=== PATIENT | female | born 1995 | race Caucasian/White ===

== ENCOUNTER 2016-12-06 06:32 | Observation (INO) | payer OTHER ==
[~2016-12-06] VITALS: Ht 162.6 cm; Wt 81.6 kg
--- NOTE | 2016-12-06 06:47 | NUR ---
PT TO ED C/O CENTER CHEST PAIN THAT HAS BEEN CONSTANT FOR APPROX 2 HRS. WAS RADIATING TO BOTH SHOULDERS, DENIES AT THIS TIME. PAIN WORSE WITH DEEP INSPIRATION. WORSE WHEN LYING FLAT. DENIES N/V. C/O DIZZINESS. C/O SOB, EVEN AT REST. DENIES LONG TRIPS, BUT DID TAKE A 90 MIN TRAIN RIDE YESTERDAY
--- NOTE | 2016-12-06 07:15 | ED CARDIAC/CP/PALPITATIONS ---
History of Present Illness General Chief Complaint: Chest Pain Stated Complaint: "WOKE UP WITH CHEST PAIN & DIFF BREATHING" PER PT Source: patient Exam Limitations: no limitations Vital Signs & Intake/Output Vital Signs & Intake/Output Vital Signs Date Time Temp Pulse Resp B/P Pulse O2 O2 Flow FiO2 Ox Delivery Rate 12/06 1204 97.9 98 20 132/84 96 Room Air 12/06 1011 98.0 110 22 127/69 98 Room Air 12/06 1006 108 / 0944 99.0 12/06 0848 99.0 12/06 0837 99.0 110 20 134/71 98 Room Air 12/06 0758 99.0 116 20 134/89 98 Room Air 12/06 0652 99 Room Air 12/06 0645 99.4 121 18 142/91 97 Room Air Allergies Coded Allergies: No Known Drug Allergies (12/06/16) Reconcile Medications Adalimumab (Humira Pen) 40 MG/0.8 ML PEN.IJ.KIT 1 SYR SC QW CROHNS DX ( Reported) Albuterol Sulfate (Proventil Hfa) 90 MCG HFA.AER.AD 2 PUF INH 4 TIMES/DAY ASTHMA (Reported) Dihydroergotamine Mesylate 0.5 MG/PUMP ACTUATION (4 MG/ML) SPRAY.PUMP 1 SPRAY ALEX AD MIGRAINE (Reported) INHALE 0.5 MG ONCE THROUGH NOSE AT FIRST SIGN OF MIGRAINE ATTACK. CAN REPEAT DOSE IN 15 MINUTES. DO NOT EXCEED 3 MG PER DAY OR 6 MG PER WEEK Diphenoxylate HCl/Atropine (Lomotil 2.5-0.025 MG Tablet) 2.5 MG-0.025 MG TABLET 1 TAB PO TID PRN DIARRHEA (Reported) NOT GIVEN IN HOSPITAL Indomethacin 25 MG CAPSULE 3 TAB PO BID PERICARDITIS Lamotrigine (Lamotrigine ER) 50 MG TAB.ER.24 1 TAB PO BID SEIZURE PROPHYLAXIS (Reported) Levonorgestrel-Ethin Estradiol (Aviane-28 Tablet) 0.1 MG-20 MCG TABLET 1 TAB PO DAILY BC (Reported) Mesalamine (Delzicol) 400 MG CAPSULE.DR 4 TAB PO DAILY CROHNS DX (Reported) Omeprazole 20 MG CAPSULE.DR 1 CAP PO AT BEDTIME GERD (Reported) Ondansetron (Zofran Odt) 4 MG TAB.RAPDIS 1 TAB SL TID PRN NAUSEA/VOMITING ( Reported) Venlafaxine HCl (Venlafaxine HCl ER) 37.5 MG CAP.ER.24H 4 CAP PO DAILY MIGRAINE PROPHYLAXIS (Reported) Triage Note: PT TO ED C/O CENTER CHEST PAIN THAT HAS BEEN CONSTANT FOR APPROX 2 HRS. WAS RADIATING TO BOTH SHOULDERS, DENIES AT THIS TIME. PAIN WORSE WITH DEEP INSPIRATION. WORSE WHEN LYING FLAT. DENIES N/V. C/O DIZZINESS. C/O SOB, EVEN AT REST. DENIES LONG TRIPS, BUT DID TAKE A 90 MIN TRAIN RIDE YESTERDAY Triage Nurses Notes Reviewed? yes Onset: Abrupt Duration: minute(s): (2) Timing: single episode today Quality/Severity: moderate, pressure Location: central Radiation: shoulders Activities at Onset: sleep Associated Symptoms: palpiatations : No Patient currently breastfeeds: No HPI: This is a 21 year old female who presents to the ER for chief complaint of chest pain and shortness of breath which woke her up from sleep at 5 am today. Complains of pressure like pain, initially radiating to bilateral shoulders. Positive palpitations. No fever or chills, no recent URI symptoms. Patient is on control pills. Denies any recent prolonged travel or immobilization. She denies chance of . Also history of Crohn's disease on weekly Humira injections. Past History Travel History Traveled to [place] past 21 day No Medical History Any Pertinent Medical History? see below for history Neurological: migraine, seizure Respiratory: asthma Gastrointestinal: Crohn's disease Surgical History Surgical History: COLONOSCOPIES Psychosocial History What is your primary language Bolivian Tobacco Use: Never used ETOH Use: occasional use Illicit Drug Use: denies illicit drug use Family History Hx Contributory? No Review of Systems Review of Systems Constitutional: Denies: chills, fever. EENTM: Reports: no symptoms. Respiratory: Reports: short of breath. Denies: cough, sputum production. Cardiovascular: Reports: chest pain, palpitations. GI: Denies: abdominal pain. Genitourinary: Reports: no symptoms. Musculoskeletal: Reports: no symptoms. Skin: Reports: no symptoms. Neurological/Psychological: Reports: no symptoms. Hematologic/Endocrine: Denies: bruising, bleeding, polyuria, polydipsia. Immunologic/Allergic: Denies: splenectomy. All Other Systems: Reviewed and Negative Physical Exam Physical Exam General Appearance: well developed/nourished, alert, awake, anxious Head: atraumatic, normal appearance Eyes: Bilateral: normal appearance, PERRL, EOMI. Ears, Nose, Throat: normal pharynx, normal ENT inspection Neck: normal inspection, supple, full range of motion Respiratory: normal breath sounds, chest non-tender, no respiratory distress Cardiovascular: regular rate/rhythm Peripheral Pulses: 2+ radial (R), 2+ radial (L) Gastrointestinal: normal bowel sounds, soft, non-tender Back: normal inspection Extremities: normal inspection, normal capillary refill, normal range of motion, no edema Neurologic/Psych: no motor/sensory deficits, awake, alert, oriented x 3, normal gait, normal mood/affect Skin: intact, normal color, warm/dry Core Measures ACS in differential dx? Yes Severe Sepsis Present: No Septic Shock Present: No Progress Differential Diagnosis: AMI, aortic dissection, costochondritis, musculoskeletal pain, myocarditis, pericarditis, pneumonia, pneumothorax, PSVT, pulmonary embolism, PVCs/PACs, unstable angina, PERICARDITIS Plan of Care: Orders Procedure Date/time Status Regular Diet 12/06 L Active Patient Data 12/[address] in observation 12/06 1059 Active Vital Signs 12/06 1059 Active Code Status 12/06 1059 Active URINALYSIS 12/06 1028 Complete Add-on Test (ER Only) 12/06 0825 Active CREATINE PHOSPHOKINASE 12/06 0729 Complete THYROID STIMULATING HORMONE 12/06 0719 Complete TROPONIN LEVEL 12/06 0719 Complete PARTIAL THROMBOPLASTIN TIME 12/06 0719 Complete PROTHROMBIN TIME 12/06 0719 Complete HUMAN BETA HCG SCREEN 12/06 0719 Complete FREE T4 12/06 0719 Complete WESTERGREN SED RATE 12/06 0719 Complete D-DIMER 12/06 0719 Complete COMPREHENSIVE METABOLIC PANEL 12/06 0719 Complete CBC WITHOUT DIFFERENTIAL 12/06 0719 Complete Intake & Output 12/06 0649 Active EKG 12/06 0634 Active Laboratory Tests 12/06/16 1029: Urine Color YEL, Urine Clarity CLEAR, Urine pH 6.0, Ur Specific Alvo 1.010, Urine Protein NEG, Urine Ketones NEG, Urine Nitrite NEG, Urine Bilirubin NEG, Urine Urobilinogen 0.2, Ur Leukocyte Esterase NEG, Ur Microscopic SEDIMENT EXAMINED, Urine RBC RARE, Urine WBC 1-3 H, Ur Epithelial Cells MOD H, Urine Hemoglobin TRACE-INTACT, Urine Glucose NEG 12/06/16 0729: Anion Gap 9, Estimated GFR > 60, BUN/Creatinine Ratio 14.3, Glucose 96, Calcium 8.5, Total Bilirubin 0.5, AST 33, ALT 52, Alkaline Phosphatase 103, Creatine Kinase 237 H, Troponin I < 0.01, Total Protein 7.1, Albumin 3.6, Globulin 3.5, Albumin/Globulin Ratio 1.0 L, TSH 0.923, Free T4 0.82, Total Beta HCG NEGATIVE, PT 13.1 H, INR 1.25 H, APTT 27, D-Dimer 3544 H, CBC w Diff NO MAN DIFF REQ, RBC 4.83, MCV 76.9 L, MCH 25.3 L, RDW 14.4, MPV 7.6, Gran % 61.0, Lymphocytes % 20.9, Monocytes % 15.5 H, Eosinophils % 2.3, Basophils % 0.3, Absolute Granulocytes 4.6, Absolute Lymphocytes 1.6, Absolute Monocytes 1.2 H, Absolute Eosinophils 0.2, Absolute Basophils 0, PUBS MCHC 32.9 L, ESR Westergren 17 8:33 AM Patient still complaining of some pain after Toradol although she is feeling "better. Requesting more pain medications. IV Tylenol ordered. D-dimer is pending. Troponin is negative. Heart rate is 107. HR 140'S and becomes diaphoretic with ambulation. D/W Dr. Villalpando, will keep overnight on telemetry. (NINA ATKINSON,CARMEN) Diagnostic Imaging: Viewed by Me: CT Scan, Ultrasound. Discussed w/RAD: CT Scan, Ultrasound. Radiology Impression: PATIENT: ROSEMARIE CHACON PRESENT AGE: 21 PATIENT ACCOUNT NO: [id number] : 94 LOCATION: [facility] ORDERING PHYSICIAN: CARMEN WOOD MD SERVICE DATE: 12/06/16 EXAM TYPE: CAT - CTA CHEST-PULMONARY EMBOLISM EXAMINATION: CT ANGIOGRAM OF THE CHEST WITH AND WITHOUT CONTRAST (CT PULMONARY ANGIOGRAM FOR PE) CLINICAL INFORMATION: Chest pain and tachycardia; question pulmonary embolus. COMPARISON: No pertinent prior studies are available for comparison. TECHNIQUE: Prior to contrast administration, noncontrast localization images were obtained. Subsequently, multidetector volumetric imaging was performed from the thoracic inlet to below the diaphragms following the administration of 95 mL Optiray 320 intravenous contrast. No contrast reaction reported Sagittal, coronal, and MIP oblique sagittal reformatted images were obtained on the CT workstation, uploaded to PACS, and reviewed. Total exam dose-length product 424.59 mGy-cm FINDINGS: QUALITY OF STUDY/CONTRAST BOLUS: Satisfactory. PULMONARY ARTERIES: No central or segmental pulmonary emboli. THORACIC AORTA: No aneurysm or dissection. LUNG: Anteriorly within the right middle lobe (2:172), there is a 3 mm noncalcified subpleural nodule. There is a 5 mm pleural-based nodule, likely a subpleural lymph node, in the posteromedial right lower lobe (2:183). In the posterior basal segment of the left lower lobe (2:345), there is a 5 mm peripheral parenchymal, noncalcified nodule. 3 mm and 2 mm subpleural nodules are seen in the lateral basal segment of the left lower lobe (2:333 and 344). There is no focal infiltrate or groundglass opacity. There is mild left apical scarring. No generalized increase is seen in peripheral interlobular septal markings. No bleb or bullous formation is seen. The central airways appear patent. PLEURA: No pleural effusion or pneumothorax. MEDIASTINUM: Normal heart size. No pericardial effusion. No hilar or mediastinal lymphadenopathy. No evidence of septal bowing or right heart strain. CHEST WALL/AXILLA: No axillary or internal mammary lymphadenopathy. OSSEOUS STRUCTURES: No acute or suspicious osseous abnormality. UPPER ABDOMEN: Unremarkable. No reflux of contrast into the hepatic veins to suggest elevated right heart pressures. IMPRESSION: 1. No pulmonary embolus is seen. There is no thoracic aortic aneurysm or dissection. 2. There are small bilateral pulmonary nodules, the largest measuring approximately 5 mm. These are nonspecific could be secondary to infectious, inflammatory or neoplastic etiologies. Recommend continued follow-up via Fleischner criteria. 3. The lungs appear clear. 4. No sizable mediastinal or hilar adenopathy is seen. REFERENCE: Various management parameters for pulmonary nodules are in the literature. According to the Fleischner Society, recommendations for pulmonary nodules are as follows: Nodule size < or = to 4 mm in LOW RISK PATIENTS: No follow up needed. Nodule size < or = to 4 mm in HIGH RISK PATIENTS: Follow up CT at 12 months; if unchanged, no further follow up. Nodule size > 4-6 mm in LOW RISK PATIENTS: Follow up CT at 12 months; if unchanged, no further follow up. Nodule size > 4-6 mm in HIGH RISK PATIENTS: Initial follow up CT at 6-12 months, then at 18-24 months if no change. Nodule size > 6-8 mm in LOW RISK PATIENTS: Initial follow up CT at 6-12 months, then at 18-24 months if no change. Nodule size > 6-8 mm in HIGH RISK PATIENTS: Initial follow up CT at 3-6 months, then 9-12 months and 24 months if no change. Nodule size > 8 mm in LOW RISK PATIENTS: Follow up CT at around 3, 9, and 24 months, dynamic contrast-enhanced CT, PET, and/or biopsy. Nodule size > 8 mm in HIGH RISK PATIENTS: Same as for low-risk patients. DICTATED BY: AUGUSTINE FIELD MD DATE /TIME DICTATED:12/06/16955 DRAFTER SEISMOGRAPH:MAX DATE/TIME TRANSCRIBED: 12/06/16955 CONFIDENTIAL, DO NOT COPY WITHOUT APPROPRIATE AUTHORIZATION. < Electronically signed in Other Vendor System> SIGNED BY: AUGUSTINE FIELD MD 12/06/16 1012, PATIENT: ROSEMARIE CHACON PRESENT AGE: 21 PATIENT ACCOUNT NO: [id number] : 94 LOCATION: [facility] ORDERING PHYSICIAN: CARMEN WOOD MD SERVICE DATE: 12/06/16 EXAM TYPE: US - US-EXT BILAT VENOUS DOPPLER EXAMINATION: US TRIPLEX LOWER EXTREMITY, BILATERAL CLINICAL INFORMATION: Dyspnea and tachycardia. On oral contraceptives. Suspect venous thromboembolism. Swelling both lower extremities. COMPARISON: None TECHNIQUE: Color-flow triplex imaging with spectral analysis and compression Doppler were performed on the bilateral lower extremities. FINDINGS: Respiratory variation, normal compression and augmented flow are noted throughout the bilateral lower extremities. The visualized common femoral vein, superficial femoral vein, profunda femoral vein, popliteal vein and midcalf peroneal and posterior tibial venous segments show no evidence of deep venous thrombosis. There is no Diaz's cyst. IMPRESSION: Normal triplex scan without evidence of deep venous thrombosis involving the bilateral lower extremities. DICTATED BY: SYL BLOOD MD DATE /TIME DICTATED:12/06/161204 DRAFTER SEISMOGRAPH:MAX DATE/TIME TRANSCRIBED: 12/06/161204 CONFIDENTIAL, DO NOT COPY WITHOUT APPROPRIATE AUTHORIZATION. < Electronically signed in Other Vendor System> SIGNED BY: SYL BLOOD MD 12/06/16 1211 Initial ED EKG: SINUS TACHYCARDIA @ 114 BPM Rhythm Strip: sinus tachycardia Departure Departure Time of Disposition: 1100 Disposition: STILL A PATIENT Condition: Stable Clinical Impression Primary Impression: Sinus tachycardia Referrals: VIKTOR CHONG D.O. (PCP/Family) Departure Forms: Customer Survey General Discharge Information Prescriptions: Current Visit Scripts Indomethacin 3 TAB PO BID #60 Observation Note Spoke With: KWASI ATKINSON PhD,DYLAN Ting Physician Advisor Notified: CHERI GOLDSMITH DO Place Patient In: Non-ED OBS Care Area Rationale for Observation: My rational for observation is as follows [TELE MONITOR, NASAL O2, IV FLUIDS, SERIAL EKG, SERIAL TROPONIN, CARDIOLOGY EVALUATION BY DR VILLALPANDO, CONSIDER ECHOCARDIOGRAM, F/U DOPPLER U/S]. Critical Care Note Critical Care Note Critical Care Time: non-applicable
--- NOTE | 2016-12-06 07:16 | NUR ---
TRIAGE NOTE APPRECIATED 02 SAT 97% RA LUNGS CTA NO SWELLING NOTED TO BILAT LOWER EXT.
[2016-12-06 08:01] LABS: ABSOLUTE BASOPHIL COUNT 0 /CUMM (0.0-0.2); ABSOLUTE EOSINOPHIL COUNT 0.2 /CUMM (0.0-0.7); ABSOLUTE GRANULOCYTE CT 4.6 /CUMM (1.4-6.5); ABSOLUTE LYMPH COUNT 1.6 /CUMM (1.2-3.4); ABSOLUTE MONOCYTE COUNT 1.2 /CUMM (0.10-0.60); BASOPHIL % 0.3 % (0.0-2.0); EOSINOPHIL % 2.3 % (0-5); HEMATOCRIT 37.2 % (37-47); MEAN CORPUSCULAR HGB 25.3 PG (27.0-31.0); MEAN CORPUSCULAR HGB CONC 32.9 G/DL (33.0-37.0); MEAN CORPUSCULAR VOLUME 76.9 FL (81.0-99.0); MEAN PLATELET VOLUME 7.6 FL (7.4-10.4); PLATELET COUNT 212 /CUMM (130-400); RBC DISTRIBUTION WIDTH 14.4 % (11.5-14.5); RED BLOOD CELL CT 4.83 /CUMM (4.20-5.40); WHITE BLOOD CELL COUNT 7.5 /CUMM (4.8-10.8)
--- NOTE | 2016-12-06 08:48 | NUR ---
PAIN CONT. BY GIVEN IV APAP
[2016-12-06 09:11] LABS: PT 13.1 SEC (9.4-12.5); PTT 27 SEC (25-37)
[2016-12-06] MEDS ORDERED: AVIANE-28 TABL1 EACH PO (09:18)
[2016-12-06] MEDS ORDERED: VENLAFAXINE H37.5 M4 PO (09:19)
[2016-12-06] MEDS ORDERED: LOMOTIL 2.5-0.1 EACH PO (09:19)
[2016-12-06] MEDS ORDERED: SUMATRIPTA6 MG/0.52 SC (09:20)
[2016-12-06] MEDS ORDERED: DELZICOL400 M1 PO (09:20)
[2016-12-06] MEDS ORDERED: ZOFRAN ODT4 M1 SL (09:20)
[2016-12-06] MEDS ORDERED: DIHYDROERGOTAMIN1 ML NAS (09:20)
[2016-12-06] MEDS ORDERED: HUMIRA PEN40 MG/0.8 SC (09:21)
--- NOTE | 2016-12-06 09:43 | NUR ---
PT ACCOMPANIED BY THIS NURSE TO CT SCAN
--- NOTE | 2016-12-06 10:12 | CT SCAN REPORT ---
EXAMINATION: CT ANGIOGRAM OF THE CHEST WITH AND WITHOUT CONTRAST (CT PULMONARY ANGIOGRAM FOR PE) CLINICAL INFORMATION: Chest pain and tachycardia; question pulmonary embolus. COMPARISON: No pertinent prior studies are available for comparison. TECHNIQUE: Prior to contrast administration, noncontrast localization images were obtained. Subsequently, multidetector volumetric imaging was performed from the thoracic inlet to below the diaphragms following the administration of 95 mL Optiray 320 intravenous contrast. No contrast reaction reported Sagittal, coronal, and MIP oblique sagittal reformatted images were obtained on the CT workstation, uploaded to PACS, and reviewed. Total exam dose-length product 424.59 mGy-cm FINDINGS: QUALITY OF STUDY/CONTRAST BOLUS: Satisfactory. PULMONARY ARTERIES: No central or segmental pulmonary emboli. THORACIC AORTA: No aneurysm or dissection. LUNG: Anteriorly within the right middle lobe (2:172), there is a 3 mm noncalcified subpleural nodule. There is a 5 mm pleural-based nodule, likely a subpleural lymph node, in the posteromedial right lower lobe (2:183). In the posterior basal segment of the left lower lobe (2:345), there is a 5 mm peripheral parenchymal, noncalcified nodule. 3 mm and 2 mm subpleural nodules are seen in the lateral basal segment of the left lower lobe (2:333 and 344). There is no focal infiltrate or groundglass opacity. There is mild left apical scarring. No generalized increase is seen in peripheral interlobular septal markings. No bleb or bullous formation is seen. The central airways appear patent. PLEURA: No pleural effusion or pneumothorax. MEDIASTINUM: Normal heart size. No pericardial effusion. No hilar or mediastinal lymphadenopathy. No evidence of septal bowing or right heart strain. CHEST WALL/AXILLA: No axillary or internal mammary lymphadenopathy. OSSEOUS STRUCTURES: No acute or suspicious osseous abnormality. UPPER ABDOMEN: Unremarkable. No reflux of contrast into the hepatic veins to suggest elevated right heart pressures. IMPRESSION: 1. No pulmonary embolus is seen. There is no thoracic aortic aneurysm or dissection. 2. There are small bilateral pulmonary nodules, the largest measuring approximately 5 mm. These are nonspecific could be secondary to infectious, inflammatory or neoplastic etiologies. Recommend continued follow-up via Fleischner criteria. 3. The lungs appear clear. 4. No sizable mediastinal or hilar adenopathy is seen. REFERENCE: Various management parameters for pulmonary nodules are in the literature. According to the Fleischner Society, recommendations for pulmonary nodules are as follows: Nodule size < or = to 4 mm in LOW RISK PATIENTS: No follow up needed. Nodule size < or = to 4 mm in HIGH RISK PATIENTS: Follow up CT at 12 months; if unchanged, no further follow up. Nodule size > 4-6 mm in LOW RISK PATIENTS: Follow up CT at 12 months; if unchanged, no further follow up. Nodule size > 4-6 mm in HIGH RISK PATIENTS: Initial follow up CT at 6-12 months, then at 18-24 months if no change. Nodule size > 6-8 mm in LOW RISK PATIENTS: Initial follow up CT at 6-12 months, then at 18-24 months if no change. Nodule size > 6-8 mm in HIGH RISK PATIENTS: Initial follow up CT at 3-6 months, then 9-12 months and 24 months if no change. Nodule size > 8 mm in LOW RISK PATIENTS: Follow up CT at around 3, 9, and 24 months, dynamic contrast-enhanced CT, PET, and/or biopsy. Nodule size > 8 mm in HIGH RISK PATIENTS: Same as for low-risk patients.
--- NOTE | 2016-12-06 10:30 | NUR ---
URINE SPEC. SENT TO LAB PT AMBULATED IN [place] SAT RANGED BETWEEN 96 AND 97 ON RA PT FELT DIZZY AND BECAME DIAPHORETIC HR [address] DR. WOOD MADE AWARE
--- NOTE | 2016-12-06 11:10 | NUR ---
PT AWARE SHE WILL BE ADMITED
--- NOTE | 2016-12-06 11:34 | NUR ---
PT TO US VIA STRETCHER RESTING COMFORTABLE AT THIS TIME
--- NOTE | 2016-12-06 12:03 | History & Physical ---
See Addendum General Information and HPI MD Statement: I have seen and personally examined ROSEMARIE CHACON and documented this H&P. The patient is a 21 year old F who presented with a patient stated chief complaint of [chest pain]. Source of Information: patient Exam Limitations: no limitations History of Present Illness: Ms Benjamin is a 21 year old woman with a past medical history of migraines, crohn 's disease, epilepsy and asthma. She presents with a sudden onset of pleuritic chest pain that woke her up from sleep this morning around 5 am. The pain is 8/ 10 intensity, constant and worsened by deep breaths and partially relieved by leaning forward. it radiated to both her shoulders and arms and is associated with palpitations and shortness of breath. She felt light-headed at the onset of her chest pain, but denied orthopnea or diaphoresis. This is the first such episiode of such pain she has ever experienced. When she could not get any relief from her albuterol inhaler, she called EMS and was brought to the hospital. She denies prior malaise, URTI, fever, or chills. She does not have nausea, vomitting or change in her usual bowel movements (She has crohn's disease). She was assessed in the ER and was found to be tachycardic to 120 bpm. She had a markedly elevated D-Dimer of 3544. However a CT scan of her chest and doppler ultrasound of her legs were all negative for thromboembolism. Allergies/Medications Allergies: Coded Allergies: No Known Drug Allergies (12/06/16) Home Med list Adalimumab (Humira Pen) 40 MG/0.8 ML PEN.IJ.KIT 1 SYR SC QW CROHNS DX ( Reported) Albuterol Sulfate (Proventil Hfa) 90 MCG HFA.AER.AD 2 PUF INH 4 TIMES/DAY ASTHMA (Reported) Dihydroergotamine Mesylate 0.5 MG/PUMP ACTUATION (4 MG/ML) SPRAY.PUMP 1 SPRAY ALEX AD MIGRAINE (Reported) INHALE 0.5 MG ONCE THROUGH NOSE AT FIRST SIGN OF MIGRAINE ATTACK. CAN REPEAT DOSE IN 15 MINUTES. DO NOT EXCEED 3 MG PER DAY OR 6 MG PER WEEK Diphenoxylate HCl/Atropine (Lomotil 2.5-0.025 MG Tablet) 2.5 MG-0.025 MG TABLET 1 TAB PO TID PRN DIARRHEA (Reported) Lamotrigine (Lamotrigine ER) 50 MG TAB.ER.24 1 TAB PO BID SEIZURE PROPHYLAXIS (Reported) Levonorgestrel-Ethin Estradiol (Aviane-28 Tablet) 0.1 MG-20 MCG TABLET 1 TAB PO DAILY BC (Reported) Mesalamine (Delzicol) 400 MG CAPSULE.DR 4 TAB PO DAILY CROHNS DX (Reported) Omeprazole 20 MG CAPSULE.DR 1 CAP PO AT BEDTIME GERD (Reported) Ondansetron (Zofran Odt) 4 MG TAB.RAPDIS 1 TAB SL TID PRN NAUSEA/VOMITING ( Reported) Sumatriptan Succinate 6 MG/0.5 ML PEN.INJCTR 6 MG SC AD PRN MIGRAINE HEADACHE (Reported) INJECT 6 MG AT FIRST SIGN OF HEADACHE. CAN REPEAT DOSE AFTER 1 HOUR IF NO RESPONSE. DO NOT EXCEED 12 MG IN 24 HOURS Venlafaxine HCl (Venlafaxine HCl ER) 37.5 MG CAP.ER.24H 4 CAP PO DAILY MIGRAINE PROPHYLAXIS (Reported) Past History Travel History Traveled to [place] past 21 day No Medical History Neurological: migraine, seizure Respiratory: asthma Gastrointestinal: Crohn's disease Surgical History Surgical History: COLONOSCOPIES Past Family/Social History Family History Relations & Conditions if any FATHER FH: atrial fibrillation FH: diabetes mellitus FH: HTN (hypertension) MOTHER FH: HTN (hypertension) Psychosocial History Where do you live? Home Who Do You Live With? spouse Smoking Status: Never Smoked ETOH Use: occasional use Illicit Drug Use: denies illicit drug use Employment History Employment Law Student Review of Systems Review of Systems Constitutional: Reports: see HPI. Denies: chills, diaphoresis, fever, malaise. Exam & Diagnostic Data Last 24 Hrs of Vital Signs/I&O Vital Signs Date Time Temp Pulse Resp B/P Pulse O2 O2 Flow FiO2 Ox Delivery Rate 12/06 2036 Room Air 12/06 1623 98.7 103 16 145/74 96 Room Air 12/06 1352 98.8 98 20 130/100 97 Room Air Room Air 12/06 1306 97.8 110 20 138/89 12/06 1204 97.9 98 20 132/84 96 Room Air 12/06 1011 98.0 110 22 127/69 98 Room Air 12/06 1006 108 12/06 0944 99.0 12/06 0848 99.0 02/04 0837 99.0 110 20 134/71 98 Room Air 12/06 0758 99.0 116 20 134/89 98 Room Air 12/06 0652 99 Room Air 12/06 0645 99.4 121 18 142/91 97 Room Air Intake & Output 12/06 1600 12/06 0800 12/06 0000 Intake Total 2340 0 Output Total Balance 2340 0 Intake, IV 2100 Intake, Oral 240 0 Patient 180 lb 180 lb Weight Physical Exam General Appearance Alert, Oriented X3, Cooperative, No Acute Distress Skin No Rashes, No Breakdown, No Significant Lesion HEENT Atraumatic, PERRLA, EOMI, Mucous Membr. moist/pink Neck Supple, No JVD, No thryomegaly, +2 Carotid Pulse wo Bruit Lymphatic Cervical nl Cardiovascular Regular Rate, Normal S1, Normal S2, No Murmurs, Sternal tenderness and reproducible chest pain on palpation present Lungs Clear to Auscultation, Normal Air Movement Abdomen Normal Bowel Sounds, Soft, No Tenderness, No Hepatospenomegaly, No Masses Neurological Normal Gait, Normal Speech, Strength at 5/5 X4 Ext, Normal Tone, Sensation Intact, Cranial Nerves 3-12 NL Extremities No Clubbing, No Cyanosis, No Edema Last 24 Hrs of Labs/[place]: Laboratory Tests 12/06/16 2100: Troponin I 0.02 12/06/16 1553: Troponin I < 0.01 12/06/16 1029: Urine Color YEL, Urine Clarity CLEAR, Urine pH 6.0, Ur Specific [place] 1.010, Urine Protein NEG, Urine Ketones NEG, Urine Nitrite NEG, Urine Bilirubin NEG, Urine Urobilinogen 0.2, Ur Leukocyte Esterase NEG, Ur Microscopic SEDIMENT EXAMINED, Urine RBC RARE, Urine WBC 1-3 H, Ur Epithelial Cells MOD H, Urine Hemoglobin TRACE-INTACT, Urine Glucose NEG 12/06/16 0729: Rheum Factor Semi-Quant < 8.6 12/06/16 0729: Anion Gap 9, Estimated GFR > 60, BUN/Creatinine Ratio 14.3, Glucose 96, Calcium 8.5, Total Bilirubin 0.5, AST 33, ALT 52, Alkaline Phosphatase 103, Creatine Kinase 237 H, Troponin I < 0.01, Total Protein 7.1, Albumin 3.6, Globulin 3.5, Albumin/Globulin Ratio 1.0 L, TSH 0.923, Free T4 0.82, Total Beta HCG NEGATIVE, PT 13.1 H, INR 1.25 H, APTT 27, D-Dimer 3544 H, CBC w Diff NO MAN DIFF REQ, RBC 4.83, MCV 76.9 L, MCH 25.3 L, RDW 14.4, MPV 7.6, Gran % 61.0, Lymphocytes % 20.9, Monocytes % 15.5 H, Eosinophils % 2.3, Basophils % 0.3, Absolute Granulocytes 4.6, Absolute Lymphocytes 1.6, Absolute Monocytes 1.2 H, Absolute Eosinophils 0.2, Absolute Basophils 0, PUBS MCHC 32.9 L, ESR [place] 17, MARCELL Titer Pending, Anti-Nuclear Antibody Pending Diagnostic Data EKG Results Sinus tachycardia HR 114 bpm Assessment/Plan Assessment: Ms Benjamin is a 21 year old woman with a past medical history of migraines, crohn 's disease, epilepsy and asthma. She presents with a sudden onset of pleuritic chest pain that woke her up from sleep this morning around 5 am. Her pain is positional and worsened by palpating her sternum. Her overall picture is suggestive of pleuritis or pericarditis. However a small PE is a possibility and could be missed on the CTA chest. She will be observed on telemetry and investigated. Problem list 1. Chest pain concerning for pericarditis 2. Pulmonary embolism 3. Rule out NSTEMI 4. History of Migraine 5. History of crohn's disease 6. History of asthma 7. History of epilepsy Plan -Admit to telemetry -Serial EKG and troponin to rule out an NSTEMI -Echocardiogram to assess cardiac function -IV ketorolac 30 mg Q 6 hrs for chest pain -Can switch to po indomethacin once pain is better controlled -Consider empiric therapy with IV heparin drip if suspicion of PE remains high and patient remains tachycardic -DVT prophylaxis with SC lovenox 40 mg daily -Continue home medications for migraine, epilepsy, asthma and crohn's disease -Patient is full code As Ranked By This Provider Problem List: 1. Pericarditis 2. Pulmonary embolism 3. Sinus tachycardia 4. Crohn disease Core Measures/Miscellaneous Acute Coronary Syndrome ACS Diagnosis: No Cerebrovascular Accident CVA/TIA Diagnosis: No Congestive Heart Failure CHF Diagnosis: No Venous Thromboembolism VTE Risk Factors: Acute medical illness, Oral contraception VTE Prophylaxis Ordered Inpt: Pharm- Heparin No Mech VTE prophylaxis d/t: No contraindications No VTE Pharm Prophylaxis d/t: No contraindications VTE Diagnosis: Yes VTE Type: Pulmonary Embolism VTE Confirmed by (Test): NONE Severe Sepsis Severe Sepsis Present: No Septic Shock Septic Shock Present: No Miscellaneous Documentation Attending Case Discussed With: KWASI ATKINSON PhD,DYLAN Maguire Primary Care Physician: VIKTOR CHONG D.O. Patient sees these Specialists Gastroenterology- Dr. Shaw Level of Patient Care: Telemetry Resident Review Statement Resident Statement: examined this patient, discussed with product managent intern, discussed with family
--- NOTE | 2016-12-06 12:11 | ULTRASOUND REPORT ---
EXAMINATION: US TRIPLEX LOWER EXTREMITY, BILATERAL CLINICAL INFORMATION: Dyspnea and tachycardia. On oral contraceptives. Suspect venous thromboembolism. Swelling both lower extremities. COMPARISON: None TECHNIQUE: Color-flow triplex imaging with spectral analysis and compression Doppler were performed on the bilateral lower extremities. FINDINGS: Respiratory variation, normal compression and augmented flow are noted throughout the bilateral lower extremities. The visualized common femoral vein, superficial femoral vein, profunda femoral vein, popliteal vein and midcalf peroneal and posterior tibial venous segments show no evidence of deep venous thrombosis. There is no Diaz's cyst. IMPRESSION: Normal triplex scan without evidence of deep venous thrombosis involving the bilateral lower extremities.
--- NOTE | 2016-12-06 12:28 | NUR ---
bed 184-1
--- NOTE | 2016-12-06 13:09 | NUR ---
REPORT GIVEN TO BRUNILDA BALLARDEXHIBIT BUILDER NOTIFIED
[2016-12-06 13:52] VITALS: BP 130/100
--- NOTE | 2016-12-06 14:00 | NUR ---
PATIENT ADMITTED TO TELE FROM ER. ADMITTING DX CP. ALERT AND ORIENTATED X3. ST ON MONITOR. CP 7/10 AND CONSTANT. TROPONIN NEG X 1. NO SOB. ON RA. ORIENTATED TO ROOM AND CALL LIGHT. FAMILY AT BEDSIDE. WILL FOLLOW PLAN OF CARE.
[2016-12-06] MEDS ORDERED: OMEPRAZOLE20 M2 PO (14:21)
[2016-12-06] MEDS ORDERED: LAMOTRIGINE ER50 MG PO (14:22)
[2016-12-06] MEDS ORDERED: PROVENTIL HFA6.7 GM INH (14:36)
[2016-12-06 16:23] VITALS: BP 145/74
--- NOTE | 2016-12-06 20:34 | Cons- Cardiology ---
General Information and HPI Consulting Request Date of Consult: 12/06/16 Requested By: KWASI ATKINSON PhD,DYLAN Maguire History of Present Illness: Deedee is a 21 year old female with history of Crohn's disease and asthma who noted the sudden onset of a severe precordial chest pain at about 5AM today. This discomfort is associated with shortness of breath and mild lightheadedness. She also felt her heart race for a couple days and was discovered to be tachycardic with a heart rate in the 140BPM range upon presentation to the ER. The chest dicomfort is pleuritic and is somewhat improved with sitting up as opposed to lying supine. She denies any fever, chills, nausea or vomiting. No reported leg swelling or discomfort. Workup included a chest CT that was negative for pulmonary embolism but did disclose multiple nodules and enlarged lymph nodes. Her lower extremity dopplers are negative for thrombus. Allergies/Medications Allergies: Coded Allergies: No Known Drug Allergies (12/06/16) Home Med List: Adalimumab (Humira Pen) 40 MG/0.8 ML PEN.IJ.KIT 1 SYR SC QW CROHNS DX ( Reported) Albuterol Sulfate (Proventil Hfa) 90 MCG HFA.AER.AD 2 PUF INH 4 TIMES/DAY ASTHMA (Reported) Dihydroergotamine Mesylate 0.5 MG/PUMP ACTUATION (4 MG/ML) SPRAY.PUMP 1 SPRAY ALEX AD MIGRAINE (Reported) INHALE 0.5 MG ONCE THROUGH NOSE AT FIRST SIGN OF MIGRAINE ATTACK. CAN REPEAT DOSE IN 15 MINUTES. DO NOT EXCEED 3 MG PER DAY OR 6 MG PER WEEK Diphenoxylate HCl/Atropine (Lomotil 2.5-0.025 MG Tablet) 2.5 MG-0.025 MG TABLET 1 TAB PO TID PRN DIARRHEA (Reported) Lamotrigine (Lamotrigine ER) 50 MG TAB.ER.24 1 TAB PO BID SEIZURE PROPHYLAXIS (Reported) Levonorgestrel-Ethin Estradiol (Aviane-28 Tablet) 0.1 MG-20 MCG TABLET 1 TAB PO DAILY BC (Reported) Mesalamine (Delzicol) 400 MG CAPSULE. 4 TAB PO DAILY CROHNS DX (Reported) Omeprazole 20 MG CAPSULE.DR 1 CAP PO AT BEDTIME GERD (Reported) Ondansetron (Zofran Odt) 4 MG TAB.RAPDIS 1 TAB SL TID PRN NAUSEA/VOMITING ( Reported) Sumatriptan Succinate 6 MG/0.5 ML PEN.INJCTR 6 MG SC AD PRN MIGRAINE HEADACHE (Reported) INJECT 6 MG AT FIRST SIGN OF HEADACHE. CAN REPEAT DOSE AFTER 1 HOUR IF NO RESPONSE. DO NOT EXCEED 12 MG IN 24 HOURS Venlafaxine HCl (Venlafaxine HCl ER) 37.5 MG CAP.ER.24H 4 CAP PO DAILY MIGRAINE PROPHYLAXIS (Reported) Review of Systems Review of Systems: Headaches Past History Travel History Traveled to [place] past 21 day No Medical History Blood Transfusion Hx: No Neurological: migraine, seizure EENT: NONE Respiratory: asthma Gastrointestinal: Crohn's disease Hepatic: NONE Renal: NONE Musculoskeletal: NONE Psychiatric: anxiety Endocrine: NONE Blood Disorders: NONE Cancer(s): NONE PRISON TEACHER/Reproductive: NONE Surgical History Surgical History: COLONOSCOPIES Family History Family History Reviewed? No premature CAD Psychosocial History Smoking Status: Never Smoked ETOH Use: occasional use Illicit Drug Use: denies illicit drug use Exam & Diagnostic Data Vital Signs and I&O Vital Signs Date Time Temp Pulse Resp B/P Pulse O2 O2 Flow FiO2 Ox Delivery Rate 12/06 1623 98.7 103 16 145/74 96 Room Air 12/06 1352 98.8 98 20 130/100 97 Room Air Room Air 12/06 1306 97.8 110 20 138/89 02/ 1204 97.9 98 20 132/84 96 Room Air / 1011 98.0 110 22 127/69 98 Room Air 12/06 1006 108 / 0944 99.0 / 0848 99.0 / 0837 99.0 110 20 134/71 98 Room Air / 0758 99.0 116 20 134/89 98 Room Air / 0652 99 Room Air / 0645 99.4 121 18 142/91 97 Room Air Intake & Output 12/06 1600 12/06 0800 / 0000 / 1600 / 0800 / 0000 Intake Total 2340 0 Output Total Balance 2340 0 Intake, IV 2100 Intake, Oral 240 0 Patient 180 lb 180 lb Weight Physical Exam: General: WD/ overweight female in NAD; alert and oriented x 3 HEENT: NC/AT, PERRL, EOMI, clear oropharynx Neck: no JVD, no carotid bruit Heart: tachycardiac with normal rhythm and 2/6 systolic murmur at the LLSB Lungs: clear bilaterally Abdomen: soft, NT, +ve bowel sounds Extremities: no edema Diagnostic Data EKG Results sinus tachycardia Assessment/Plan Assessment/Plan * This patient has a pleuritic chest discomfort that may be related to her pulmonary nodules. Although she has a very elevated D-dimer her chest CT and LE ultrasound are both negative for a PE. It should be noted that a false positive D-dimer can be found in the setting of increased RF and malignancy. For now we will begin anticoagulation with IV heparin in case small peripheral emboli have caused her clinical pattern that were not seen on her chest CT. We will obtain an echocardiogram to assess her RV size and pressures which will give us more information regarding the possibility of a PE. We will also evaluate for a pericardial effusion that may be causing her discomfort although there are no ECG changes consistent with this diagnosis. Begin Indomethacin 75mg BID. * We will obtain a pulmonary consult regarding her pulmonary nodules. * Check a RF and MARCELL. * Continue usual home medications except for sumatriptan Consult Acknowledgment - Thank you for your consult request.
[2016-12-07 00:25] VITALS: BP 132/94
[2016-12-07 05:11] LABS: ABSOLUTE BASOPHIL COUNT 0 /CUMM (0.0-0.2); ABSOLUTE EOSINOPHIL COUNT 0.4 /CUMM (0.0-0.7); ABSOLUTE GRANULOCYTE CT 1.5 /CUMM (1.4-6.5); ABSOLUTE LYMPH COUNT 1.8 /CUMM (1.2-3.4); BASOPHIL % 0.4 % (0.0-2.0); EOSINOPHIL % 8.3 % (0-5); GRANULOCYTE % 32.2 % (42.2-75.2); HEMATOCRIT 35.2 % (37-47); MEAN CORPUSCULAR HGB 25.6 PG (27.0-31.0); MEAN CORPUSCULAR HGB CONC 33.6 G/DL (33.0-37.0); MEAN CORPUSCULAR VOLUME 76.3 FL (81.0-99.0); MEAN PLATELET VOLUME 7.6 FL (7.4-10.4); PLATELET COUNT 192 /CUMM (130-400); RBC DISTRIBUTION WIDTH 14.2 % (11.5-14.5); RED BLOOD CELL CT 4.61 /CUMM (4.20-5.40); WHITE BLOOD CELL COUNT 4.7 /CUMM (4.8-10.8)
[2016-12-07 05:15] LABS: PTT 59 SEC (25-37)
[2016-12-07 08:17] VITALS: BP 132/94
--- NOTE | 2016-12-07 09:23 | PN- Cardiology ---
Subjective Subjective: * Discomfort and shortness of breath have completely resolved after receiving Toradol in the ER and Indomethacin last evening. * Mild tachycardia is still noted. * rheumatoid factor is normal Objective Vital Signs and I&Os Vital Signs Date Time Temp Pulse Resp B/P Pulse O2 O2 Flow FiO2 Ox Delivery Rate 12/07 0817 98.1 102 18 132/94 98 Room Air 12/07 0025 99.1 98 20 132/94 98 Room Air 12/06 2036 Room Air 12/06 1623 98.7 103 16 145/74 96 Room Air 12/06 1352 98.8 98 20 130/100 97 Room Air Room Air 12/06 1306 97.8 110 20 138/89 12/06 1204 97.9 98 20 132/84 96 Room Air 12/06 1011 98.0 110 22 127/69 98 Room Air 12/06 1006 108 /04 0944 99.0 Intake & Output 12/07 1600 12/07 0800 02/05 0000 / 1600 12/06 0800 12/06 0000 Intake Total 215 887 3238 0 Output Total Balance 542 318 5206 0 Intake, IV 236 2100 Intake, Oral 300 500 240 0 Patient 180 lb 180 lb Weight Physical Exam: General: WD/ overweight female in NAD; alert and oriented x 3 Heart: tachycardiac with normal rhythm and 2/6 systolic murmur at the LLSB Lungs: clear bilaterally Extremities: no edema Assessment/Plan Assessment/Plan * This patient appears to have improved with NSAID therapy which is suggestive of this discomfort being related to an inflammatory process. Her ECG does not show evidence of pericarditis but this may be a subtle case. I would like an echocardiogram to assess for a pericardial effusion and to assess her RV pressures. This patient likely had some shortness of breath related to increased discomfort with breathing. This has resolved. I do not think she has a PE. * We will discharge this patient on all her usual medications except Sumatriptan. We will continue Indomethacin 75mg BID for 10 days. I would like her echo done prior to discharge if it can be done at a reasonable time. If it cannot be done by 5 PM we will discharge patient to home with a plan for outpatient echo through our office. Continue telemetry? Yes
--- NOTE | 2016-12-07 14:06 | Patient Discharge Instructions ---
Discharge Instructions General Discharge Information You were seen/treated for: CHEST PAIN LIKELY SECONDARY TO PERICARDITIS Special Instructions: PLEASE CONTINUE TAKING INDOMETHACIN PRESCRIBED. FOLLOW UP WITH IN ONE WEK TO DISCUSS ECHO RESULTS. Diet Continue normal diet: Yes Recommended Diet: Heart Healthy Activity Activity Self Limited: Yes Acute Coronary Syndrome Inclusion Criteria At DC or during hospital stay patient has or had the following: ACS DIAGNOSIS No Discharge Core Measures Meds if any: Prescribed or Continued at Discharge Meds if any: NOT Prescribed or Continued at Discharge Congestive Heart Failure Inclusion Criteria At DC or during hospital stay patient has or had the following: CHF DIAGNOSIS No Discharge Core Measures Meds if any: Prescribed or Continued at Discharge Meds if any: NOT Prescribed or Continued at Discharge Cerebrovascular accident Inclusion Criteria At DC or during hospital stay patient has or had the following: CVA/TIA Diagnosis No Discharge Core Measures Meds if any: Prescribed or Continued at Discharge Meds if any: NOT Prescribed or Continued at Discharge Venous thromboembolism Inclusion Criteria VTE Diagnosis No VTE Type NONE VTE Confirmed by (Test) NONE Discharge Core Measures - Per Current guidelines, there needs to be overlap - treatment for the first 5 days of Warfarin therapy. - If discharged on Warfarin prior to 5 days of - overlap therapy, the patient will need to be - assessed for post discharge needs including - *Post discharge parental anticoagulation - *Warfarin and/or parental anticoagulation education - *Follow up date to check INR post discharge At least 5 days overlap therapy as Inpatient No Meds if any: Prescribed or Continued at Discharge Note: Overlap Therapy is Warfarin and Anticoagulant Meds if any: NOT Prescribed or Continued at Discharge
[2016-12-07] MEDS ORDERED: INDOMETHACIN25 M1 PO (14:38)
--- NOTE | 2016-12-08 07:13 | ECHOCARDIOGRAM REPORT ---
ROSEMARIE CHACON Age: 21 : 1995 Gender: F Exam Date: 12/07/2016 13:11 Exam Location: [facility] Ht (in): 64 Wt (lb): 180 BSA: 1.95 BP: 132 / 94 Ordering Physician: MILANA ROMAN MD Referring Physician: Luke Meyer MD, PhD Technologist: Elaine Nguyen RUST Room Number: 189-01 Indications: CHEST PAIN Rhythm: Sinus Technical Quality: good FINDINGS Left Ventricle Normal left ventricular size, wall thickness and systolic function with no obvious regional wall motion abnormalities. Normal left ventricular diastolic filling pattern for age. The ejection fraction is visually estimated at 60%. Right Ventricle The right ventricle is normal in size and function. Right Atrium The right atrium is normal in size. Left Atrium The left atrium is normal in size. The interatrial septum is intact. Mitral Valve The mitral valve is normal in structure and function. There is trace mitral regurgitation. Aortic Valve Structurally normal aortic valve without significant sclerosis or stenosis. There is no aortic regurgitation. Tricuspid Valve The tricuspid valve is normal in structure and function. There is no tricuspid regurgitation. Pulmonic Valve Structurally normal pulmonic valve. There is trace pulmonic regurgitation. Pericardium Normal pericardium without effusion. No pleural effusion. Great Vessels Normal aortic root dimension. The aortic arch and great vessels are well seen and are normal. CONCLUSIONS 1. Normal EF of 60%. 2. Trace mitral regurgitation. 3. Trace pulmonic regurgitation. Luke Meyer M.D. (Electronically Signed) Final Date: 08 December 2016 07:11 MEASUREMENTS (Male / Female) Normal Values 2D ECHO LV Diastolic Diameter PLAX 4.6 cm 4.2 - 5.9 / 3.9 - 5.3 cm LV Systolic Diameter PLAX 2.8 cm 2.1 - 4.0 cm LV Fractional Shortening PLAX 39.1 % 25 - 46 % LV Ejection Fraction 2D Teich 69.6 % IVS Diastolic Thickness 1.0 cm LVPW Diastolic Thickness 1.1 cm LV Relative Wall Thickness 0.5 RV Internal Dim ED PLAX 2.7 cm 1.9 - 3.8 cm LVOT Diameter 1.8 cm Aortic Root Diameter 2.4 cm LA Systolic Diameter LX 3.2 cm 3.0 - 4.0 / 2.7 - 3.8 cm LA Volume 27.0 cm 18 - 58 / 22 - 52 cm Ascending Aorta Diameter 2.8 cm DOPPLER AV Peak Velocity 144.0 cm/s AV Peak Gradient 8.3 mmHg AV Mean Velocity 100.0 cm/s AV Mean Gradient 5.0 mmHg AV Velocity Time Integral 27.3 cm LVOT Peak Velocity 109.0 cm/s LVOT Peak Gradient 4.8 mmHg LVOT Mean Velocity 73.2 cm/s LVOT Mean Gradient 2.0 mmHg LVOT Velocity Time Integral 18.0 cm LVOT Stroke Volume 45.8 cm AV Area Cont Eq vti 1.7 cm AV Area Cont Eq pk 1.9 cm MV Peak Velocity 112.0 cm/s MV Peak Gradient 5.0 mmHg MV Mean Velocity 61.6 cm/s MV Mean Gradient 2.0 mmHg Mitral E Point Velocity 77.0 cm/s Mitral A Point Velocity 60.7 cm/s Mitral E to A Ratio 1.3 MV PHT Velocity 117.0 cm/s MV Deceleration [place] 1133.0 cm/s MV Pressure Half Time 31.0 ms MV Area PHT 7.1 cm MV Deceleration Time 177.0 ms PV Peak Velocity 117.0 cm/s PV Peak Gradient 5.5 mmHg PV Mean Velocity 74.1 cm/s PV Mean Gradient 3.0 mmHg PV Velocity Time Integral 22.3 cm LV E' Lateral Velocity 15.8 cm/s Mitral E to LV E' Lateral Ratio 4.9 LV E' Septal Velocity 8.2 cm/s Mitral E to LV E' Septal Ratio 9.4
== END 2016-12-07 15:50 ==
LOC: ENRESERVDT → ENRESERVTM → ERH 06:32 → ERHI 10:59 → ENPENDDIS 10:59 → 1NO 13:43
PROVIDERS: Emergency Medicine; Student in an Organized Health Care Education/Training Program; ADMIT Internal Medicine Interventional Cardiology
DX: R07.9 Chest pain, unspecified (principal); G43.909 Migraine, unspecified, not intractable, without status migrainosus; K50.90 Crohn's disease, unspecified, without complications; G40.909 Epilepsy, unspecified, not intractable, without status epilepticus; J45.909 Unspecified asthma, uncomplicated; R00.0 Tachycardia, unspecified
CPT/HCPCS: 2000; 81001; 86431; 93005; 93010; 93306; 93970; 96361; 96372; 96374; 96375; 96376; G0378; J0131; J1644; J1650; J1885; J3490; J7060